=== PATIENT | male | born 1950 | race Caucasian/White ===

== ENCOUNTER 2017-03-29 14:50 | Inpatient (IN) | payer MEDICARE, BC ==
[~2017-03-29] VITALS: Ht 170.2 cm; Wt 83.6 kg
[2017-03-29] VITALS (288 sets, daily range): BP systolic 164; BP diastolic 84; PULSE 67; TEMP 97.8; O2SAT 95–100
[~2017-03-29 14:50] MED LIST: ASPIR-LOW81 MG PO; CARDI-OMEGA1000 MG PO; CIPRO 500MG TA500 MG PO; DUO-KAPS1 CAP PO; LIPITOR20 MG PO; PLAVIX 75MG TAB75 MG PO; PRILOSEC10 MG; PRINIVIL10 MG PO; SOME BP MED; TOPROL XL 50MG50 MG PO; VITAMIN C PUR1000 MG PO; VITAMIN E100 I3 PO
[2017-03-29] MEDS ORDERED: THE MEDICINE S200 M2 PO (15:12)
[2017-03-29 15:33] LABS: BASO # 0.1 (0.0-0.2); BASO % 0.9 % (0.0-2.0); EOS # 0.2 (0.0-0.7); EOS % 1.2 % (0-4.0); GRAN # 8.6 (1.4-6.5); GRAN % 66.4 % (42.2-75.2); HEMATOCRIT 49.5 % (42.0-52.0); LYMPH # 2.5 (1.2-3.4); LYMPH % 19.1 % (20.0-51.0); MEAN CELL VOLUME 97 fl (80.0-100.0); MEAN CORPUSCULAR HEMOGLOBIN 35 pg (27.0-31.0); MEAN CORPUSCULAR HGB CONC 36 g/dl (33.0-37.0); MEAN PLATELET VOLUME 9.9 fl (7.4-10.4); MONO # 1.6 (0.1-0.6); PLATELET COUNT 281 K/mm3 (130-400); RED BLOOD COUNT 5.11 M/mm3 (4.20-5.60); REDCELL DISTRIBUTION WIDTH-CV 12.4 % (11.5-14.5); WHITE BLOOD COUNT 12.9 K/mm3 (4.8-10.8)
[2017-03-29 15:37] LABS: INR 0.9 (0.8-3.0); PROTHROMBIN TIME 10.4 SECONDS (9.7-12.8)
[2017-03-29 15:40] LABS: PARTIAL THROMBOPLASTIN TIME 28.7 SECONDS (26.0-37.0)
[2017-03-29 15:44] LABS: ADJUSTED CALCIUM 10.9 mg/dL (8.4-10.2); ALBUMIN 4.2 gm/dL (3.5-5.0); BILIRUBIN,TOTAL 0.6 mg/dL (0.0-1.0); CALCIUM 11.1 mg/dL (8.4-10.2); CREATININE, serum 1.05 mg/dL (0.66-1.25); MAGNESIUM 1.7 mg/dL (1.6-2.3); POTASSIUM 4.1 mmol/L (3.4-5.0)
[2017-03-29 15:55] LABS: TROPONIN-I 0.028 ng/mL (0.000-0.034)
[2017-03-30] VITALS (582 sets, daily range): BP systolic 144–163; BP diastolic 74–95; PULSE 61–62; TEMP 97–97.2; O2SAT 92–100
[2017-03-30 05:43] LABS: HEMATOCRIT 45.9 % (42.0-52.0); MEAN CELL VOLUME 98 fl (80.0-100.0); MEAN CORPUSCULAR HEMOGLOBIN 34 pg (27.0-31.0); MEAN CORPUSCULAR HGB CONC 35 g/dl (33.0-37.0); MEAN PLATELET VOLUME 9.7 fl (7.4-10.4); PLATELET COUNT 256 K/mm3 (130-400); RED BLOOD COUNT 4.69 M/mm3 (4.20-5.60); REDCELL DISTRIBUTION WIDTH-CV 12.6 % (11.5-14.5); WHITE BLOOD COUNT 10.8 K/mm3 (4.8-10.8)
[2017-03-30 05:48] LABS: ADD PATHOLOGY DIFF REVIEW NO
[2017-03-30 05:57] LABS: CALCIUM 9.3 mg/dL (8.4-10.2); CREATININE, serum 0.91 mg/dL (0.66-1.25)
[2017-03-30 06:22] LABS: TROPONIN-I 0.093 ng/mL (0.000-0.034)
[2017-03-30 06:51] LABS: BAND 7 % (0-10); NEUTROPHILS 58 % (42.0-75.2); PLATELET ESTIMATE NORMAL (NORMAL); TOTAL CELLS COUNTED 100
[2017-03-30] MEDS ORDERED: TOPROL XL 50MG50 MG PO (10:26)
[2017-03-30] MEDS ORDERED: ELIQUIS 5MG PO (10:27)
[2017-03-30 10:48] LABS: ADJUSTED CALCIUM 9.8 mg/dL (8.4-10.2); ALBUMIN 3.4 gm/dL (3.5-5.0); BILIRUBIN,TOTAL 0.7 mg/dL (0.0-1.0); CALCIUM 9.3 mg/dL (8.4-10.2); CREATININE, serum 0.92 mg/dL (0.66-1.25); TOTAL PROTEIN 5.9 gm/dL (6.4-8.2)
[2017-03-30] MEDS ORDERED: LIPITOR20 MG PO (10:55)
[2017-03-30] MEDS ORDERED: ZESTRIL 10MG10 MG PO (10:55)
[2017-03-30] MEDS ORDERED: METOPROLOL TART75 MG PO (10:55)
[2017-03-30] MEDS ORDERED: TOPROL XL100 MG PO (14:26)
== END 2017-03-30 16:00 | disposition home or self-care (01) | DRG 310 ==
LOC: COL.ER 14:50 → ICU 17:10
PROVIDERS: Emergency Medicine; Family Medicine; Internal Medicine Cardiovascular Disease
DX: I48.0 Paroxysmal atrial fibrillation (principal); F17.210 Nicotine dependence, cigarettes, uncomplicated; I10 Essential (primary) hypertension; R07.9 Chest pain, unspecified; J44.9 Chronic obstructive pulmonary disease, unspecified; Z85.038 Personal history of other malignant neoplasm of large intestine; Z95.5 Presence of coronary angioplasty implant and graft
CPT/HCPCS: 99222-AI; 99238; J1650; J3475; J7030; J7050

== ENCOUNTER → 2017-09-19 | Outpatient (CLI) | payer MEDICARE, BC ==
[~2017-09-19] MED LIST changes: +ELIQUIS 5MG PO; +METOPROLOL TART75 MG PO; +THE MEDICINE S200 M2 PO; +TOPROL XL100 MG PO; +ZESTRIL 10MG10 MG PO
== END ==
LOC: COL.RAD 08:48
DX: K43.9 Ventral hernia without obstruction or gangrene (principal); I77.819 Aortic ectasia, unspecified site; Z90.81 Acquired absence of spleen; Z98.890 Other specified postprocedural states
CPT/HCPCS: Q9967

== ENCOUNTER → 2017-10-04 | Outpatient (CLI) | payer MEDICARE, BC | LOC: COL.PUL 10-03 11:00 | DX: R06.02 Shortness of breath (principal); J44.9 Chronic obstructive pulmonary disease, unspecified | CPT/HCPCS: J7674 ==

== ENCOUNTER → 2019-02-13 | Outpatient (CLI) | payer MEDICARE, BC | LOC: COL.RAD 13:56 | DX: I65.23 Occlusion and stenosis of bilateral carotid arteries (principal); M47.812 Spondylosis without myelopathy or radiculopathy, cervical region | CPT/HCPCS: Q9967 ==